=== PATIENT | male | born 1960 | race Caucasian/White ===

== ENCOUNTER → 2016-07-24 | Outpatient (CLI) | payer OTHER ==
[~2016-07-24] MED LIST: LOSA50TA6 PO; METF1000 PO; METF500T PO; OMEG10007 PO; PROB1TAB16
[2016-07-24 12:53] LABS: ALT/SGPT 41 U/L (12-78); BLOOD UREA NITROGEN 13 mg/dl (7-18); BUN/CREATININE RATIO 12.5 (10-20); CALCIUM 8.6 mg/dl (8.5-10.1); CARBON DIOXIDE 25 mmol/L (21-32); CHLORIDE 101 mmol/L (98-107); CHOLESTEROL 305 mg/dl (0-200); GLUCOSE 246 mg/dl (70-99); POTASSIUM 4.3 mmol/L (3.5-5.1); SODIUM 135 mmol/L (136-145); TRIGLYCERIDES 334 mg/dl (0-150); VERY LOW DENSITY LIPOPROT CALC 67 mg/dl
[2016-07-24 12:57] LABS: ALB/GLOB RATIO 1.2 (0.9-2); ALKALINE PHOSPHATASE 87 U/L (45-117); AST/SGOT 12 U/L (15-37); CHOLESTEROL/HDL RATIO 9.2; HDL CHOLESTEROL 33 mg/dl; LDL CHOLESTEROL CALCULATED 205 mg/dl; PROSTATE SPECIFIC ANTIGEN 0.887 ng/ml (0.000-4.000)
[2016-07-24 12:59] LABS: ESTIMATED AVERAGE GLUCOSE 214 mg/dl; HA1C FLAG Normal (Normal)
== END | disposition home or self-care (01) ==
LOC: C.LABPBG 11:03
PROVIDERS: ATTEND Internal Medicine
DX: Z00.00 Encounter for general adult medical examination without abnormal findings (principal)

== ENCOUNTER → 2016-07-29 | Outpatient (CLI) | payer OTHER ==
[2016-07-29 13:08] LABS: THYROID STIMULATING HORMONE 1.07 uIu/ml (0.300-4.500)
== END | disposition home or self-care (01) ==
LOC: C.LABPBG 09:16
PROVIDERS: ATTEND Internal Medicine
DX: Z11.59 Encounter for screening for other viral diseases (principal); E78.5 Hyperlipidemia, unspecified

== ENCOUNTER → 2016-09-18 | Outpatient (CLI) | payer OTHER ==
[2016-09-18 18:14] LABS: URINE APPEARANCE TURBID (CLEAR); URINE BILIRUBIN NEG (NEG); URINE COLOR YELLOW; URINE NITRITE NEG (NEG); URINE PH 5.5 (4.5-7.5); URINE SPECIFIC GRAVITY 1.019 (1.000-1.030); UROBILINOGEN NEG (NEG); ZZUR CULT IF INDIC CLEAN CATCH NO
[2016-09-18 18:15] LABS: MANUAL MICROSCOPIC REQUIRED? NO; REVIEW REQ? NO
== END | disposition home or self-care (01) ==
LOC: C.LABSPEC 13:49
PROVIDERS: ATTEND Physician Assistant
DX: R10.9 Unspecified abdominal pain (principal)

== ENCOUNTER → 2016-09-24 | Outpatient (CLI) | payer OTHER ==
--- NOTE | 2016-09-24 10:04 | DIAGNOSTIC IMAGING REPORT ---
RENAL ULTRASOUND CLINICAL HISTORY: Acute flank pain. COMPARISON STUDY: None. TECHNIQUE: Sonography of the kidneys and the urinary bladder was performed. FINDINGS: The right kidney measures 11 x 5.7 x 5 cm and the left measures 11.4 x 5.5 x 5.7 cm. There is no hydronephrosis. Renal echogenicity, size and cortical thickness are normal. No calculi or masses are identified by sonography. Both ureteral jets were identified. IMPRESSION: Normal renal ultrasound. No hydronephrosis. Electronically signed by: Ramiro Osei M.D. 09/24/2016 10:03 AM Dictated Date/Time: 09/24/2016 10:02 AM
== END | disposition home or self-care (01) ==
LOC: C.ULTR 09:38
PROVIDERS: ATTEND Physician Assistant
DX: R10.9 Unspecified abdominal pain (principal)

== ENCOUNTER → 2016-11-07 | Outpatient (CLI) | payer OTHER ==
[2016-11-07 12:47] LABS: ALT/SGPT 33 U/L (12-78); BLOOD UREA NITROGEN 8 mg/dl (7-18); BUN/CREATININE RATIO 8.2 (10-20); CARBON DIOXIDE 24 mmol/L (21-32); CHLORIDE 106 mmol/L (98-107); CHOLESTEROL 215 mg/dl (0-200); CREATININE 0.99 mg/dl (0.60-1.40); GLUCOSE 141 mg/dl (70-99); POTASSIUM 4.3 mmol/L (3.5-5.1); SODIUM 137 mmol/L (136-145); TRIGLYCERIDES 383 mg/dl (0-150); VERY LOW DENSITY LIPOPROT CALC 77 mg/dl
[2016-11-07 12:51] LABS: ALB/GLOB RATIO 1.3 (0.9-2); ALKALINE PHOSPHATASE 88 U/L (45-117); AST/SGOT 13 U/L (15-37); CHOLESTEROL/HDL RATIO 6.7; HDL CHOLESTEROL 32 mg/dl; LDL CHOLESTEROL CALCULATED 106 mg/dl
[2016-11-07 12:54] LABS: ESTIMATED AVERAGE GLUCOSE 163 mg/dl; HA1C FLAG Normal (Normal)
== END | disposition home or self-care (01) ==
LOC: C.LABPBG 08:48
PROVIDERS: ATTEND Internal Medicine
DX: I10 Essential (primary) hypertension (principal)

== ENCOUNTER → 2017-05-23 | Outpatient (CLI) | payer OTHER ==
--- NOTE | 2017-05-23 16:26 | DIAGNOSTIC IMAGING REPORT ---
THORACIC SPINE MRI HISTORY: M47.812 Cervical [id number] Chronic pain upper back pain. TECHNIQUE: Multiplanar multisequence MRI of the thoracic spine was performed without the use of contrast. COMPARISON: Thoracic spine MRI 10/23/2012. FINDINGS: Alignment is intact. No fractures within the thoracic spine. Cervical spinal fusion hardware is partially visualized. The thoracic spinal cord is normal in course, caliber, and signal intensity. Disc spaces are within normal limits for age. No disc herniations. No significant central canal or neural foraminal narrowing. Small endplate osteophytes at the lower thoracic spine are again noted. Stable T12 vertebral body hemangioma measuring 12 mm. Paraspinal soft tissues are unremarkable. IMPRESSION: No change compared to the prior study. No significant abnormality within the thoracic spine. Electronically signed by: Kenny Mendoza M.D. 05/23/2017 4:24 PM Dictated Date/Time: 05/23/2017 4:19 PM
--- NOTE | 2017-05-23 16:30 | DIAGNOSTIC IMAGING REPORT ---
CERVICAL WITHOUT CONTRAST HISTORY: 56 years-old Male M47.812 Cervical [id number] Chronic pain syndrome BCD MRI. Chronic neck pain with history of remote cervical spine surgery. COMPARISON: MRI of the cervical spine 11/03/2009. TECHNIQUE: Multiplanar multisequence MRI of the cervical spine was obtained without contrast. FINDINGS: The large field of view fitness consultant localizer images demonstrate no gross abnormality. Postoperative changes from prior anterior plate screw fusion seen at the C6-C7 level. No acute fracture or subluxation. No focal bone marrow edema. Signal within the cervical spinal cord is within normal limits. Imaged posterior fossa structures are unremarkable. C2-C3: Uncovertebral spurring with broad-based posterior disc osteophyte complex and mild facet arthrosis. No central canal or foraminal narrowing. C3-C4: Mild intervertebral disc space narrowing with uncovertebral spurring and small broad-based posterior disc osteophyte complex with mild facet arthrosis. Findings cause moderate right foraminal narrowing. Left foramen and central canal are generally patent. Findings have mildly worsened from comparison. C4-C5: Mild to moderate intervertebral disc space narrowing with uncovertebral spurring and posterior disc bulge. Moderate facet arthrosis. Moderate to severe left and mild right foraminal narrowing with mild central canal stenosis. C5-C6: Mild to moderate intervertebral disc space narrowing with uncovertebral spurring and broad-based posterior disc osteophyte complex which favors the right lateral recess and right foramen. Mild facet arthrosis. This causes mild right lateral recess and moderate right foraminal narrowing. Mild left foraminal stenosis. Central canal is patent. C6-C7: Posterior osteophytic spurring favors the right lateral recess and right foramen. There is moderate right and mild to moderate left foraminal stenosis. No significant central canal narrowing. Mild facet arthrosis. C7-T1: Mild intervertebral disc space narrowing with uncovertebral spurring and mild facet arthrosis. No central canal or foraminal narrowing. No significant degenerative changes of the imaged thoracic spine. IMPRESSION: 1. Postoperative changes from prior anterior plate and screw fusion at C6-C7. No focal bone marrow edema or malalignment. 2. Discogenic degenerative changes and facet arthrosis at C4-C5 cause moderate to severe left and mild right foraminal narrowing with mild central canal stenosis. 3. At C5-C6, discogenic degenerative changes contribute to mild right lateral recess and moderate right foraminal narrowing. The above report was generated using voice recognition software. It may contain grammatical, syntax or spelling errors. Dictated: 05/23/2017 4:03 PM Transcribed: 05/23/2017 4:30 PM [email or web address] Electronically signed by: Jadiel Dc M.D. 05/23/2017 6:17 PM Dictated Date/Time: 05/23/2017 4:03 PM
== END | disposition home or self-care (01) ==
LOC: C.MRIBC 14:39
PROVIDERS: ATTEND Internal Medicine
DX: M47.812 Spondylosis without myelopathy or radiculopathy, cervical region (principal); G89.4 Chronic pain syndrome; M48.02 Spinal stenosis, cervical region; Z98.1 Arthrodesis status

== ENCOUNTER → 2017-11-24 | Outpatient (CLI) | payer OTHER ==
[2017-11-24 13:52] LABS: EOS % 2.2 %; EOS ABS # 0.18 K/uL (0-0.5); HEMATOCRIT 46.5 % (42-52); HEMOGLOBIN 16.4 g/dL (14.0-18.0); IG# 0.01 K/uL (0.00-0.02); LYMPH % 25.9 %; LYMPH ABS # 2.11 K/uL (1.2-3.4); MEAN CELL VOLUME 91.4 fL (80-100); MEAN CORPUSCULAR HEMOGLOBIN 32.2 pg (25-34); MEAN CORPUSCULAR HGB CONC 35.3 g/dl (32-36); MEAN PLATELET VOLUME 12.1 fL (7.4-10.4); MONO % 6.3 %; MONO ABS # 0.51 K/uL (0.11-0.59); NEUT % 65.5 %; NEUT ABS # 5.34 K/uL (1.4-6.5); PLATELET COUNT 202 K/uL (130-400); RED CELL DISTRIBUTION WIDTH CV 13.3 % (11.5-14.5); RED CELL DISTRIBUTION WIDTH SD 43.9 fL (36.4-46.3); WHITE BLOOD COUNT 8.15 K/uL (4.8-10.8)
[2017-11-24 14:10] LABS: HEMOGLOBIN A1C 6.6 % (4.5-5.6)
[2017-11-24 14:36] LABS: ALBUMIN 4.3 gm/dl (3.4-5.0); ALKALINE PHOSPHATASE 91 U/L (45-117); ALT/SGPT 28 U/L (12-78); AST/SGOT 12 U/L (15-37); BLOOD UREA NITROGEN 12 mg/dl (7-18); CALCIUM 8.9 mg/dl (8.5-10.1); CARBON DIOXIDE 27 mmol/L (21-32); CHOLESTEROL 225 mg/dl (0-200); CREATININE 0.96 mg/dl (0.60-1.40); GLUCOSE 128 mg/dl (70-99); LDL CHOLESTEROL CALCULATED 126 mg/dl; POTASSIUM 4.3 mmol/L (3.5-5.1); SODIUM 135 mmol/L (136-145); TOTAL PROTEIN 7.8 gm/dl (6.4-8.2)
== END | disposition home or self-care (01) ==
LOC: C.LABPBG 08:46
PROVIDERS: ATTEND Internal Medicine
DX: Z00.00 Encounter for general adult medical examination without abnormal findings (principal); E78.5 Hyperlipidemia, unspecified; M47.812 Spondylosis without myelopathy or radiculopathy, cervical region; E11.9 Type 2 diabetes mellitus without complications; G89.4 Chronic pain syndrome; I10 Essential (primary) hypertension